=== PATIENT | female | born 1965 | race Caucasian/White ===

== ENCOUNTER 2022-12-15 15:03 | Emergency (ER) | payer BC ==
[~2022-12-15] VITALS: Ht 165.1 cm; Wt 50.0 kg
[2022-12-15 15:16] VITALS: BP 152/100; PULSE 73; TEMP 99.1; O2SAT 98
[2022-12-15] MEDS ORDERED: HYDROcodone/acetaminophen 10/325mg tab PO ONE (16:15)
[2022-12-15 16:18] VITALS: RESP 17
[2022-12-15] MEDS ORDERED: HYDR-3973 PO (22:59)
== END 2022-12-15 16:42 | disposition home or self-care (01) ==
LOC: ER 15:04
DX: S76.911A Strain of unspecified muscles, fascia and tendons at thigh level, right thigh, initial encounter (principal); Z88.6 Allergy status to analgesic agent; X58.XXXA Exposure to other specified factors, initial encounter; Y93.89 Activity, other specified; Y92.89 Other specified places as the place of occurrence of the external cause; Y99.8 Other external cause status
CPT/HCPCS: 99283; A6449